=== PATIENT | female | born 1975 | race American Indian/Alaskan Native ===

== ENCOUNTER 2025-05-08 13:02 | Emergency (ER) | payer OTHER ==
[~2025-05-08] VITALS: Ht 162.6 cm; Wt 140.6 kg
== END 2025-05-08 14:44 | disposition home or self-care (01) ==
LOC: ER 13:02
DX: S00.03XA Contusion of scalp, initial encounter (principal); W01.10XA Fall on same level from slipping, tripping and stumbling with subsequent striking against unspecified object, initial encounter; Z59.89 Other problems related to housing and economic circumstances
CPT/HCPCS: 70450; 90702; 99283-25